=== PATIENT | male | born 1985 | race Caucasian/White ===

== ENCOUNTER 2018-07-13 07:38 | Day surgery (SDC) | payer OTHER ==
--- NOTE | 2018-07-13 07:36 | ANESTHESIA ---
Pre-Anesthesia VS, & Labs - Diagnosis symptomatic hemorrhoids - Procedure hemorrhoidectomy - NPO >8 hours Home Medications and Allergies Home Medications: Ambulatory Orders No Known Home Medications 07/07/18 No Known Home Medications 07/07/18 Allergies/Adverse Reactions: Allergies Allergy/AdvReac Type Severity Reaction Status Date / Time No Known Drug Allergies Allergy Verified 07/07/18 10:00 Anes History & Medical History - Anesthetic History Anesthesia Complications: reports: No previous complications Family history of Anesthesia Complications: Denies Family history of Malignant Hyperthermia: Denies - Medical History Cardiovascular: reports: None Pulmonary: reports: None Gastrointestinal: reports: Hemorrhoids Urinary: reports: None Musculoskeletal: reports: None Endocrine/Autoimmune: reports: None Skin: reports: None Exam General: Alert, Oriented x3, Cooperative, No acute distress Dental: Other (veneers) Mouth Openin Fingerbreadth Neck Mobility: Normal Mallampati classification: I Thyromental Distance: greater than 6 cm Respiratory: Lungs clear, Normal breath sounds, No respiratory distress, No accessory muscle use Cardiovascular: Regular rate, Normal S1, Normal S2, No murmurs Plan Anesthesia Type: General Consent for Procedure(s) Verified and Reviewed: No Code Status: Attempt Resuscitation ASA classification: 2-Mild systemic disease Is this case an emergency?: No
[~2018-07-13 07:38] MED LIST: BUPIVACAINE 0.5%-EPI 1:200000 PF 30 ML VIAL ONE; LIDOCAINE JELLY 2% 6 ML JEL.PF.APP ONE
[2018-07-13] MEDS ORDERED: LACTATED RINGERS 1,000 ML IV ONE ×2 (07:43→09:39)
[2018-07-13] MEDS ORDERED: BUPIVACAINE 0.5% PF 30 ML VIAL INFIL ONE ×2 (09:33)
[2018-07-13] MEDS ORDERED: IBUPROFEN 600 MG TABLET PO PRN (10:00)
[2018-07-13] MEDS ORDERED: oxyCODONE 5 MG TABLET PO PRN (10:00)
[2018-07-13] MEDS ORDERED: ACETAMINOPHEN 325 MG TABLET PO PRN (10:00)
[2018-07-13] MEDS ORDERED: ONDANSETRON 4 MG/2 ML VIAL IVP PRN (10:00)
[2018-07-13] MEDS ORDERED: NEOSTIGMINE 1 MG/1 ML 10 ML MDV IVP ONE (10:06)
[2018-07-13] MEDS ORDERED: DEXAMETHASONE 4 MG/ML VIAL IVP ONE (10:06)
[2018-07-13] MEDS ORDERED: MIDAZOLAM 2 MG/2 ML VIAL IVP ONE (10:06)
[2018-07-13] MEDS ORDERED: fentaNYL 100 MCG/2 ML VIAL IVP ONE (10:06)
[2018-07-13] MEDS ORDERED: PROPOFOL 200 MG/20 ML VIAL IVP ONE (10:06)
[2018-07-13] MEDS ORDERED: ROCURONIUM 50 MG/5 ML VIAL IVP ONE (10:06)
[2018-07-13] MEDS ORDERED: ONDANSETRON 4 MG/2 ML VIAL IVP ONE (10:06)
[2018-07-13] MEDS ORDERED: GLYCOPYRROLATE 1 MG/5 ML VIAL IVP ONE (10:06)
[2018-07-13] MEDS ORDERED: KETOROLAC 30 MG/ML VIAL IVP ONE (10:06)
[2018-07-13] MEDS ORDERED: ACETAMINOPHEN 325 MG TABLET PO ONE (11:35)
[2018-07-13] MEDS ORDERED: oxyCODONE 5 MG TABLET ONE (11:36)
[2018-07-13 11:47] VITALS: BP 118/61
--- NOTE | 2018-07-13 12:39 | OPERATIVE REPORT ---
DATE OF SERVICE: 07/13/2018 Physician: Shon Velez MD PREOPERATIVE DIAGNOSIS: Symptomatic internal and external hemorrhoids. POSTOPERATIVE DIAGNOSIS: Symptomatic internal and external hemorrhoids. PROCEDURE PERFORMED 1. Hemorrhoidectomy. 2. Excision of hypertrophied anal papillae x2. ANESTHESIA: General endotracheal plus local by Makayla Pickard CRNA. SURGEON: Shon Velez MD ESTIMATED BLOOD LOSS: 5 mL COMPLICATIONS: None. FINDINGS: Anoscopy revealed 4 hemorrhoidal columns that were located in the left lateral, left posterior, right anterior and right posterior quadrants, the left lateral which was the largest and the one that had recently been causing the patient's symptoms. In addition to hypertrophy, anal papilla were identified. No other anal or rectal pathology was noted. INDICATIONS: Patient s a 33-year-old gentleman with a multi-year history of symptomatic hemorrhoids with intermittent pain, swelling, bleeding and pruritus, culminating in a severe episode last month, prompting surgical consultation, where he was noted to have an enlarged ulcerated internal/external hemorrhoidal complex in the left lateral quadrant and several additional smaller hemorrhoidal complexes. He was interested in definitive surgical therapy and advised to undergo same. TECHNIQUE: After informed consent, the patient was taken to the operating room and placed under general endotracheal anesthesia. He was placed in the prone jackknife position with the buttocks taped apart. His perianal region was prepared with iodoform solution and draped in the usual sterile fashion; 30 mL of 0.5% Marcaine with epinephrine was infiltrated locally to perform a perianal block. The anal canal was gently dilated to 2 fingerbreadths and a univalved anal speculum inserted. Anoscopy was carried out with findings as noted above. The four identified internal/external hemorrhoidal complexes were each excised individually with the LigaSure device, care being taken to avoid injury to the underlying internal sphincter muscle. The tissue was sent for pathologic evaluation. Two hypertrophied anal papillae were also identified and were excised in a similar fashion, and also sent for pathologic evaluation. Care was taken to conserve anoderm. After the excisions had been completed and hemostasis ensured, a wick of Gelfoam soaked in viscous Xylocaine was inserted. Dry, sterile dressing was applied. Anesthesia was terminated and patient transferred to the recovery room in satisfactory condition. Sponge and needle counts were correct and no drains were used. TD: 07/13/2018 10:21 [email or web address]
== END 2018-07-13 07:39 | disposition home or self-care (01) ==
LOC: SDS 07:38
PROVIDERS: ATTEND Internal Medicine Gastroenterology
PROC: 06BY0ZC Excision of Hemorrhoidal Plexus, Open Approach (ICD-10-PCS; principal; 2018-07-13 08:30)
DX: K64.8 Other hemorrhoids (principal); K64.4 Residual hemorrhoidal skin tags; K62.89 Other specified diseases of anus and rectum; K62.5 Hemorrhage of anus and rectum; Z87.891 Personal history of nicotine dependence
CPT/HCPCS: 46260; A9270; J7120